=== PATIENT | male | born 1975 | race Caucasian/White ===

== ENCOUNTER 2017-06-10 12:23 | Emergency (ER) | payer BC, SELFPAY | END 2017-06-10 12:55 | disposition home or self-care (01) | LOC: SCSER 12:23 | DX: I10 Essential (primary) hypertension (principal); F17.210 Nicotine dependence, cigarettes, uncomplicated | CPT/HCPCS: 99283 ==

== ENCOUNTER 2017-06-11 11:25 | Emergency (ER) | payer BC ==
[2017-06-11 12:02] LABS: #Basophils 0.1 thou/uL (0.0-0.2); #Eosinphils 0.3 thou/uL (0.0-0.7); #Lymphocytes 2.3 thou/uL (1.20-3.40); #Monocytes 0.6 thou/uL (0.11-0.59); #Neutrophils 5.1 thou/uL (1.40-6.50); %Basophils 0.7 % (0.0-1.0); %Eosinophils 3.6 % (0.0-10.0); %Lymphocytes 27.6 % (21.0-51.0); %Monocytes 7.2 % (0.0-10.0); %Neutrophils 61.1 % (42.0-75.0); Hemoglobin 16.4 g/dL (14.0-18.0); Mean Corpuscular HGB CONC 33.6 g/dL (32.0-36.0); Mean Corpuscular Hemoglobin 32.1 pg (27.0-31.0); Mean Corpuscular Volume 95.8 fl (80.0-94.0); Mean Platelet Volume 6.9 fL (7.4-10.4); Platelet Count 267 thou/uL (130-400); RBC Distribution Width 12.8 % (11.5-14.5); Red Blood Cell (RBC) Count 5.11 mill/uL (4.70-6.10); White Blood Cell (WBC) Count 8.4 thou/uL (4.8-10.8)
[2017-06-11 12:19] LABS: ALT (SGPT) 40 U/L (8-55); AST (SGOT) 19 U/L (5-34); Albumin 4.3 g/dL (3.5-5.0); Alkaline Phosphatase 92 U/L (40-150); Anion Gap 12 mmol/L (10-20); BUN (Urea Nitrogen) 17 mg/dL (8.9-20.6); Bilirubin, Total 0.3 mg/dL (0.2-1.2); CK (CPK) 72 U/L (30-200); Calc. Creatinine Clearance 0 mL/min (70-130); Calcium 9.7 mg/dL (7.8-10.44); Carbon Dioxide 24 mmol/L (22-29); Chloride 106 mmol/L (98-107); Estimated GFR-MDRD Greater than 90; Globulin 2.7 g/dL (2.4-3.5); Glucose 100 mg/dL (70-105); Lipase 38 U/L (8-78); Sodium 138 mmol/L (136-145)
[2017-06-11] MEDS ORDERED: Lorazepam 2 MG/ML VIAL ONE (12:25)
--- NOTE | 2017-06-11 12:30 | RAD ---
CHEST PA AND LATERAL: History: 41-year-old male with chest pain. FINDINGS: Heart size is normal. The lungs are clear. Prominent multilevel thoracic spine disc osteophytosis. No confluent pneumonia, overt edema, or pleural effusion. IMPRESSION: No acute intrathoracic disease. POS: [facility]
== END 2017-06-11 14:11 | disposition home or self-care (01) ==
LOC: ERS 11:25
DX: R07.89 Other chest pain (principal); F43.9 Reaction to severe stress, unspecified; F17.210 Nicotine dependence, cigarettes, uncomplicated
CPT/HCPCS: 36415; 71046; 80053; 82550; 82553; 83690; 84484; 85025; 93005; 96372; J2060

== ENCOUNTER 2017-09-10 10:01 | Day surgery (SDC) | payer BC ==
[2017-09-10 11:11] LABS: Bilirubin Moderate (Negative); Blood, Urine Moderate (Negative); Glucose, Urine (Dipstick) Negative (Negative); Leukocyte Negative (Negative); Nitrite Negative (Negative); Protein, Urine (Dipstick) > or equal to 300 mg/dL (Neg-Trace); Specific Gravity, Urine 1.025 (1.005-1.030)
[2017-09-10 11:12] LABS: Clarity Slightly Cloudy (Clear)
[2017-09-10 11:36] LABS: Bacteria/HPF None Seen HPF (None Seen); Squamous Epithelial None Seen HPF (0-3); WBC/HPF None Seen HPF (0-3)
[2017-09-10] MEDS ORDERED: Ondansetron HCl/PF 4 MG/2 ML Vial ONE ×2 (11:36→13:42)
[2017-09-10] MEDS ORDERED: Morphine 5 MG/ML SYRINGE ONE (11:37)
[2017-09-10 11:41] LABS: #Basophils 0.1 thou/uL (0.0-0.2); #Monocytes 0.6 thou/uL (0.11-0.59); #Neutrophils 8.6 thou/uL (1.40-6.50); %Basophils 0.9 % (0.0-1.0); %Eosinophils 0.2 % (0.0-10.0); %Lymphocytes 9.5 % (21.0-51.0); %Monocytes 5.8 % (0.0-10.0); %Neutrophils 83.7 % (42.0-75.0); Hemoglobin 16.5 g/dL (14.0-18.0); Mean Corpuscular HGB CONC 34.7 g/dL (32.0-36.0); Mean Corpuscular Hemoglobin 31.1 pg (27.0-31.0); Mean Corpuscular Volume 89.6 fl (80.0-94.0); Mean Platelet Volume 6.8 fL (7.4-10.4); Platelet Count 280 thou/uL (130-400); RBC Distribution Width 11.2 % (11.5-14.5); Red Blood Cell (RBC) Count 5.32 mill/uL (4.70-6.10); White Blood Cell (WBC) Count 10.3 thou/uL (4.8-10.8)
--- NOTE | 2017-09-10 11:42 | CT ---
CT ABDOMEN AND PELVIS WITHOUT CONTRAST: Comparison: None. History: Right lower quadrant abdominal pain since this morning. History of constipation. Technique: Multiple contiguous axial images were obtained in a CT of the abdomen and pelvis without c ontrast. Coronal reformats were performed. FINDINGS: There is stranding change surrounding the cecum and base of the appendix. The appendix contains small phleboliths. The tip of the appendix is normal in caliber but the base is enlarged measuring 1.1 cm in size. No free air or free fluid are seen in the abdomen or pelvis. There is scattered diverticula in the colon. The small bowel is normal in caliber. The liver, gallbladder, kidneys, adrenal glands, spleen, and pancreas are unremarkable although evalu ation is limited without IV contrast. No abdominal or pelvic lymphadenopathy are seen. Degenerative changes are seen in the spine. The visualized inferior thorax and abdominal wall soft ti ssues are unremarkable. IMPRESSION: 1. Findings are consistent with acute appendicitis. 2. Diverticulosis. Dr. Feliciano notified of the findings at 11:20 a.m. on 09-10-17. POS: [facility]
[2017-09-10 11:53] LABS: ALT (SGPT) 71 U/L (8-55); AST (SGOT) 30 U/L (5-34); Albumin 4.4 g/dL (3.5-5.0); Alkaline Phosphatase 112 U/L (40-150); Anion Gap 16 mmol/L (10-20); BUN (Urea Nitrogen) 14 mg/dL (8.9-20.6); Bilirubin, Total 0.6 mg/dL (0.2-1.2); Calc. Creatinine Clearance 0 mL/min (70-130); Calcium 9.5 mg/dL (7.8-10.44); Carbon Dioxide 23 mmol/L (22-29); Chloride 101 mmol/L (98-107); Estimated GFR-MDRD 82; Globulin 3.4 g/dL (2.4-3.5); Glucose 103 mg/dL (70-105); Lipase 21 U/L (8-78); Protein, Total 7.8 g/dL (6.0-8.3); Sodium 136 mmol/L (136-145)
[2017-09-10] MEDS ORDERED: Piperacillin/Tazobactam 3.375 GM VIAL ONE (12:10)
[2017-09-10] MEDS ORDERED: Sodium Chloride 0.9% 100 ML ONE (12:10)
[2017-09-10] MEDS ORDERED: Bupivacaine/Epinephrine 0.25% 30 ML VIAL ONE (13:28)
[2017-09-10] MEDS ORDERED: Fentanyl 100 MCG/2 ML VIAL ONE ×2 (13:42→16:11)
[2017-09-10] MEDS ORDERED: Midazolam HCl 2 mg/2 ml Vial ONE (13:57)
[2017-09-10] MEDS ORDERED: CEFAZOLIN/Water 2 GM/20 ML SYRINGE ONE (14:07)
[2017-09-10] MEDS ORDERED: PROPOFOL 200 MG/20 ML VIAL ONE (14:52)
[2017-09-10] MEDS ORDERED: Dexamethasone 20 MG/5 ML VIAL ONE (14:52)
[2017-09-10] MEDS ORDERED: diphenhydrAMINE 50 MG/ML VIAL ONE (14:52)
[2017-09-10] MEDS ORDERED: Ketorolac Tromethamine 30 MG/ML VIAL ONE (14:52)
[2017-09-10] MEDS ORDERED: Lidocaine 1% PF 5 ML VIAL ONE (14:52)
[2017-09-10] MEDS ORDERED: Succinylcholine Chloride 20 MG/ML 10 ml SYRINGE FS ONE (14:52)
[2017-09-10] MEDS ORDERED: HYDROmorphone 0.5 MG/0.5 ML SYRINGE ONE ×2 (15:37→15:51)
--- NOTE | 2017-09-10 16:58 | OP ---
DATE OF PROCEDURE: 09/10/2017 PREOPERATIVE DIAGNOSIS: Acute appendicitis. POSTOPERATIVE DIAGNOSIS: Acute appendicitis. OPERATION PERFORMED: Laparoscopic appendectomy. SURGEON: Kris Crandall D.O. ANESTHESIA: General endotracheal. ESTIMATED BLOOD LOSS: 20 mL. FLUIDS GIVEN: 1300 mL crystalloids. URINARY OUTPUT: 100 Ml. Sponge and instrument count are certified as correct x2. COMPLICATIONS: None apparent at the time of operation. INDICATIONS FOR PROCEDURE: This is a 41-year-old man presented with 4-day history of abdominal pain. Clinical radiographic examination was consistent with acute appendicitis for which patient was brou ght to the operating room for appendectomy. Findings are consistent with acute retrocecal appendicitis, no evidence of perforation. DESCRIPTION OF PROCEDURE: Informed consent obtained from the patient who was brought to the operatin g room and placed in supine position. Following general anesthesia, a Sididqi catheter was inserted an d placed bedside drain. Abdomen is sterilely prepped and draped in usual fashion. Skin below the um bilicus was infiltrated with 0.25% Marcaine with epinephrine. A small curvilinear infraumbilical inc ision is made using an 11 scalpel. Umbilical stalk was grasped with Jonna's and elevated. Veress n eedle inserted through the incision, placed into the cavity through which the abdomen was insufflated with 3 liters of CO2 gas. Intraabdominal pressure noted at 1 mmHg. Following abdominal insufflatio n, Veress needle was removed and a 5 mm trocar introduced using the Visiport under laparoscopy. Lapa roscopy confirmed proper placement of the port, no injuries to underlying structures. Additional lap aroscopy reveals the right lower quadrant partially obscured by omental adhesions. Under direct lapa roscopy, a 12 mm left lower quadrant and a 5 mm suprapubic ports were placed after the overlying skin were infiltrated with 0.25% Marcaine with epinephrine and appropriate incisions made. The patient i s placed in a Trendelenburg position and rotated to his left. I introduced Prestige grasper through the left lower quadrant port using this to bluntly take down omental adhesions to reveal a retrocecal appendix which was dilated, but no evidence of perforation. I then introduced an Endo [place] force ps through the suprapubic port site grasping the appendix which was elevated. Using a [place] disse ctor, I created a rent through the mesoappendix at the base. Endo-ISMAEL with a blue load was used to d ivide the appendix at the appendicocecal junction. White load of Endo-ISMAEL was then used to divide th e mesoappendix at the base. Then, the appendix is delivered of the abdominal cavity using an EndoCat ch. Operative site was inspected for good hemostasis. Finding no other pathology, laparoscopy is te rminated. Note that we inspected the left lower quadrant due to the patient's recent history of acut e diverticulitis. Evidence of diverticulosis coli is noted in the sigmoid colon, no acute process pr esent. At this juncture, fascia of the left lower quadrant port was closed using 0 Vicryl suture and Endo close device under laparoscopy. Abdomen was desufflated. All ports and instruments removed an d accounted for. Skin incisions closed using 4-0 Monocryl suture in subcuticular fashion. Dermabond was applied over the incisions. The patient tolerated the operation without any apparent complicati on and was returned to recovery room in a satisfactory condition.
--- NOTE | 2017-09-10 17:17 | HP ---
DATE OF ADMISSION: 09/10/2017 HISTORY OF PRESENT ILLNESS: This is a 41-year-old young man who was seen in [facility] Emergency Department. The patient presented with a 3-day history of abdominal pain which is down a t right lower quadrant. The patient describes the pain as severe, rated 8/10. He had nausea, vomiting yesterday. Today, he had one small bout of diarrhea. Overnight, the patient reports some fever and chills. He was evaluated with a CT scan of the abdomen and pelvis which was suggestive of acute appendicitis for which patient was transferred to [facility] in [place], [place]. Patient arrived hemodynamically stable. At the time of my evaluation, he still reports 8-9/10 pain after having received some intra venous analgesics. Denies any nausea at this time, however. PAST MEDICAL HISTORY: Pertinent for chronic depression and essential hypertension, recent acute colo agatha diverticulitis. PAST SURGICAL HISTORY: Pertinent for ORIF of right elbow fracture from a skateboarding accident. He is also status post a childhood left inguinal herniorrhaphy. This was performed at age 4. SOCIAL HISTORY: Patient is 2 weeks recently . He is employed as an journeyman electrician pv installer. He smokes 1 pack of cigarette per day. Admits to occasional intake of ethanol in moderate amounts. He smokes m arijuana occasionally. PREHOSPITALIZATION MEDICATIONS: Include lisinopril 10 mg p.o. daily, Zoloft 25 mg p.o. daily. ALLERGIES: Patient denies any known drug allergies. FAMILY HISTORY: Notable for essential hypertension and metastatic pancreatic carcinoma in his mother who is currently in hospice care. His father from complications of lung disease related to tob acco abuse. Patient denies any family history of heart disease or any gastrointestinal disorders. REVIEW OF SYSTEMS: Ten-point review of systems is essentially unremarkable except for as stated in p ast medical history and chief complaint. PHYSICAL EXAMINATION: GENERAL: This reveals a 41-year-old normally developed man who is otherwise coherent and interactive and appears stated age. The patient is alert and oriented x3, appears to be in moderate acute distr ess secondary to abdominal pain. VITAL SIGNS: Includes blood pressure 133/68, pulse is 96, respiratory rate 20, temperature is 100.7 degrees Fahrenheit, oxygen saturation was noted at 96% on room air. HEENT: Reveals normocephalic and atraumatic. Pupils are equal, round, reactive to light and accommo dation. Extraocular muscles are intact bilaterally. He has no sclerae icterus present. HEART: Reveals regular rate and rhythm, no murmurs or gallops auscultated. LUNGS: Clear to auscultation bilaterally. Breathing is regular and unlabored. ABDOMEN: Soft with right lower quadrant tenderness at McBurney's. He has a positive Rovsing sign. Liver and spleen are nonpalpable below costal margin. NEUROLOGIC: Reveals no focal deficits present. PERTINENT LABORATORY DATA: Today includes a CBC with 10,300 white blood cells, hemoglobin and hemato crit are 16.5 and 47.6 respectively. Platelet count is 280,000. Metabolic profile: Sodium 136, pot assium is 4.0, chloride is 100, bicarbonate is 23, BUN 14, creatinine is 1.01, glucose is 103, total bilirubin 0.6, AST and ALT noted at 30 and 71 respectively. Serum lipase is normal at 21. I have personally reviewed the CT scan of the abdomen and pelvis which was obtained today revealing d ilated appendix with periappendiceal fat stranding. No free fluid or pneumoperitoneum is evident. IMPRESSION: 1. Acute appendicitis. 2. History of chronic depression. 3. History of essential hypertension. PLAN: Laparoscopic appendectomy. I have advised the patient of the above findings and plan. He has also been made aware of the potential complications involved in this sort of surgery. This included , but not limited to bleeding, infection, injury to bowel or surrounding structures. This informatio n was given to the patient in the presence of his and his nurse. The patient and his have indicated understanding of information given. He has granted consent for this admission and surgical intervention.
== END 2017-09-10 17:45 | disposition home or self-care (01) ==
LOC: SCSER 10:01 → ERS 13:40
PROVIDERS: ATTEND Surgery
PROC: 0DTJ4ZZ Resection of Appendix, Percutaneous Endoscopic Approach (ICD-10-PCS; principal; 2017-09-10)
DX: K35.80 Unspecified acute appendicitis (principal); F32.9 Major depressive disorder, single episode, unspecified; I10 Essential (primary) hypertension; K57.30 Diverticulosis of large intestine without perforation or abscess without bleeding; F17.210 Nicotine dependence, cigarettes, uncomplicated; Z79.899 Other long term (current) drug therapy
CPT/HCPCS: 74176; 80053; 81003; 81015; 83690; 85025; 88304; 96361; 96365; 96374; 96375; 99406; J2270; J0131; J1100; J1170; J1200; J1885; J2001; J2250; J2405; J2543; J2704; J3010; J7050

== ENCOUNTER 2018-05-27 17:22 | Emergency (ER) | payer BC ==
[2018-05-27 17:57] LABS: Bilirubin Negative (Negative); Blood, Urine Negative (Negative); Clarity Cloudy (Clear); Glucose, Urine (Dipstick) Negative (Negative); Leukocyte Negative (Negative); Nitrite Negative (Negative); Protein, Urine (Dipstick) 100 mg/dL (Neg-Trace); Specific Gravity, Urine 1.015 (1.005-1.030); Urobilinogen 0.2 mg/dL (0.2-1.0); pH, Urine 7.5 (5.0-9.0)
[2018-05-27 18:06] LABS: Bacteria/HPF Rare-Few HPF (None Seen); Crystals/HPF 3+ AMORPH PHOS HPF (Negative); RBC/HPF 0-3 HPF (0-3); Squamous Epithelial 0-3 HPF (0-3); WBC/HPF 0-3 HPF (0-3)
[2018-05-27 18:09] LABS: Band 1 % (5-11); Eosinophils 2 % (0-10); Hemoglobin 16.5 g/dL (14.0-18.0); Lymphocytes 16 % (21-51); MDiff Complete? YES; Mean Corpuscular HGB CONC 34.1 g/dL (32.0-36.0); Mean Corpuscular Hemoglobin 31.2 pg (27.0-31.0); Mean Corpuscular Volume 91.4 fL (78.0-98.0); Mean Platelet Volume 6.3 fL (7.4-10.4); Monocytes 6 % (0-10); Neutrophil 72 % (42-75); Platelet Count 286 thou/uL (130-400); Platelet Morphology Comment Appears Adequate; RBC Distribution Width 12.1 % (11.5-14.5); Reactive Lymphocytes 3 % (0-10); Red Blood Cell (RBC) Count 5.29 mill/uL (4.70-6.10); White Blood Cell (WBC) Count 11.6 thou/uL (4.8-10.8)
[2018-05-27 18:12] LABS: ALT (SGPT) 46 U/L (8-55); AST (SGOT) 25 U/L (5-34); Albumin 4.3 g/dL (3.5-5.0); Alkaline Phosphatase 103 U/L (40-150); Anion Gap 15 mmol/L (10-20); BUN (Urea Nitrogen) 11 mg/dL (8.9-20.6); Bilirubin, Total 0.4 mg/dL (0.2-1.2); Calc. Creatinine Clearance 0 mL/min (70-130); Calcium 9.8 mg/dL (7.8-10.44); Carbon Dioxide 23 mmol/L (22-29); Chloride 108 mmol/L (98-107); Estimated GFR-MDRD Greater than 90; Globulin 3.1 g/dL (2.4-3.5); Glucose 112 mg/dL (70-105); Lipase 24 U/L (8-78); Potassium 3.7 mmol/L (3.5-5.1); Protein, Total 7.4 g/dL (6.0-8.3); Sodium 142 mmol/L (136-145)
--- NOTE | 2018-05-27 18:22 | CT ---
CT ABDOMEN AND PELVIS 05/27/18 COMPARISON: 10/20/15 HISTORY: Lower abdominal pain. TECHNIQUE: Axial CT imaging obtained at 5 mm intervals from lung bases through the pubic symphysis with IV contr ast. Coronal reformatted imaging obtained. FINDINGS: The imaged lung bases appear unremarkable. There is no free intraperitoneal air or fluid noted. The liver, gallbladder, spleen, pancreas, adrenal glands, and kidneys are unremarkable. There is extensive diverticulosis of the descending and the sigmoid colon. There is wall thickening o f the sigmoid colon with pericolonic fat stranding, best seen on axial image 77, evidence of acute si gmoid diverticulitis. No evidence for an associated abscess. No evidence for bowel obstruction. The vascular structures appear patent. No lymphadenopathy is seen within the abdomen or pelvis. Revie w of the osseous structures. Review of the osseous structures demonstrates multilevel thoracic spine right lateral osteophyte formation and mild multilevel lower lumbar spine facet hypertrophic change. The area of colonic wall thickening and pericolonic fat stranding measures approximately 5-6 cm in le ngth. IMPRESSION: Findings consistent with sigmoid diverticulitis. Direct visualization following treatment and resolut ion of the acute symptoms suggested to exclude an underlying colonic mass. POS: [facility]
== END 2018-05-27 18:51 | disposition home or self-care (01) ==
LOC: SCSER 17:22
DX: K57.32 Diverticulitis of large intestine without perforation or abscess without bleeding (principal); F32.9 Major depressive disorder, single episode, unspecified; F17.210 Nicotine dependence, cigarettes, uncomplicated
CPT/HCPCS: 74177; 80053; 81003; 81015; 83690; 85025